=== PATIENT | female | born 1970 | race American Indian/Alaskan Native ===

== ENCOUNTER 2022-04-11 11:22 | Outpatient (CLI) | payer OTHER ==
--- NOTE | 2022-04-11 13:59 | XRay Report ---
LEFT ANKLE 3 VIEWS INDICATION / CLINICAL INFORMATION: LEFT ANKLE PAIN. COMPARISON: None available. FINDINGS: BONES / JOINT(S): No acute fracture or subluxation. No other significant abnormality. SOFT TISSUES: Soft tissue swelling in the lateral ankle. ADDITIONAL FINDINGS: None. IMPRESSION: 1. No acute findings. Signer Name: Anthony Treviño MD Signed: 04/11/2022 1:54 PM Workstation Name: [email or web address]
== END 2022-04-11 11:23 | disposition home or self-care (01) ==
LOC: XRAY 11:22
PROVIDERS: ATTEND Internal Medicine
DX: M25.572 Pain in left ankle and joints of left foot (principal)